=== PATIENT | female | born 2000 | race Two or more races ===

== ENCOUNTER 2023-09-19 16:21 | Emergency (ER) | payer MEDICAID ==
[~2023-09-19] VITALS: Ht 160 cm; Wt 51.6 kg
[2023-09-19 16:45] VITALS: BP 107/59; PULSE 69; RESP 16; TEMP 97.8
[2023-09-19 18:56] LABS: Urine Bacteria FEW /hpf (None Seen); Urine Blood 2+ /uL (Negative); Urine Clarity Clear (Clear); Urine Color Yellow (Yellow); Urine Hyaline Cast FEW /lpf (0 - 2); Urine Mucus FEW (None Seen); Urine Protein, UAD Negative (Negative); Urine Specific Gravity 1.023 (1.001-1.035); Urine Urobilinogen Normal (Negative); Urine WBC 4 /hpf (0 - 5); Urine pH 5.5 (5.0-8.0)
[2023-09-19] MEDS ORDERED: CEPH500T PO (19:29)
[2023-09-19] MEDS ORDERED: cefTRIAXone SOD 1,000 MG VL IM ONE (19:30)
[2023-09-19] MEDS ORDERED: LIDOCAINE 1% HCL (LOCAL ANESTH.) INJ 20ML MDV ID ONE (19:30)
[2023-09-19 19:37] VITALS: O2SAT 96
== END 2023-09-19 20:03 | disposition home or self-care (01) ==
LOC: ER 16:21
DX: N39.0 Urinary tract infection, site not specified (principal); Z79.899 Other long term (current) drug therapy
CPT/HCPCS: 81001; 96372; 99283; J0696; J2001